=== PATIENT | male | born 1960 | race Caucasian/White ===

== ENCOUNTER 2017-01-16 03:42 | Emergency (ER) | payer OTHER ==
--- NOTE | 2017-01-16 06:03 | ED NURSING NOTES ---
Clinical Report - Nurses [facility] [place] [address] 01/16/2017 3:42 Patient: PRAKASH AVERY TRIAGE Triage time 03:48. Acuity: LEVEL 4. Chief Complaint: Location of symptoms- (right lower leg bleeding). 03:55. Alert. SEPSIS SCREEN: Sepsis Screen. Negative (no infection suspected/documented). LEE COMA SCORE: Lee Coma Scale: 15- eyes open spontaneously (4); best verbal response- oriented x 4 (5); best motor response- obeys commands (6). --03:55 Zachary Plsaencia R.N. 03:48 01/16/17. BP: 176/86. HR: 106. RR: 16. O2 saturation: 97% on room air. Temp: 97.7 F (oral). --03:55 Zachary Plasencia R.N. Weight: 140.6 kg stated. Height/Length: 69 inches Per Patient. BMI: 45.8. --03:54 Zachary Plasencia R.N. Medications Aspir-81 Oral. Lasix Oral 100mg , daily. Lisinopril Oral 20 mg, daily. --03:52 Zachary Plasencia R.N. Medication/allergy information source: the patient. --03:55 Zachary Plasencia R.N. Allergies Penicillin. --03:53 Zachary Plasencia R.N. Toradol. --03:53 Zachary Plasencia R.N. History Arrived by EMS. Historian: patient. Accompanied by family. Primary physician (ME Haylee Crowder). An injury may have occurred. This occurred today. ( Patient reports being at home got up to go to bed and his right lower leg began to bleed). Treatment DISTRIBUTION A CLASS LINEMAN: Applied bandage. EMS treatment DISTRIBUTION A CLASS LINEMAN verbally communicated. PAST MEDICAL HX: Tetanus status: up-to-date. Immunizations: up-to-date. SOCIAL HX: Former smoker, end date 2014. History of occasional drug use: marijuana. No alcohol use. No infectious disease exposure. ABUSE ASSESSMENT: No report of abuse. FALL RISK ASSESSMENT: Fall risk assessment completed. No fall risk identified. NUTRITIONAL RISK ASSESSMENT: The nutritional risk assessment revealed no deficiencies. FUNCTIONAL ASSESSMENT: Functional assessment: no impairments noted. LEARNING NEEDS ASSESSMENT: The learning needs assessment revealed no barriers. SKIN INTEGRITY ASSESSMENT: Skin integrity risk assessment completed. No skin integrity risk identified. --03:55 Zachary Plasencia R.N. PROBLEMS: Hypertension. Congestive Heart Failure. Intraventricular septal defect. --03:54 Zachary Plasencia R.N. ADDITIONAL SURGERIES: Heart surgery. --03:54 Zachary Plasencia R.N. Interventions ID band on patient. To treatment room. --03:55 Zachary Plasencia R.N. PHYSICAL ASSESSMENT 03:56. To room via stretcher. GENERAL / NEURO / PSYCH: Oriented X 4. Alert. EXTREMITIES: Neuro-vascular status intact to the extremity. No lower extremity edema. Right leg: (bleeding). SKIN: Skin intact. Skin is warm and dry. --03:56 Zachary Plasencia R.N. NURSING PROGRESS NOTES 03:52 Pressure dressing applied to right lower leg by [facility] motorcycle technician. --03:57 Zachary Plasencia R.N. 03:56. Two patient identifiers checked. Call light placed in reach. Bed placed in lowest position. Brakes of bed on. Patient ready for evaluation- chart flagged. --03:56 Zachary Plasencia R.N. 04:06 01/16/2017 Site #1 started via IV in the right hand with an 20g angiocath, with aseptic technique and good blood return; one attempt. Blood drawn: rainbow set. Labeled in the presence of the patient and sent to the lab. Saline lock flushed with 10 mL saline. --04:10 Zachary Plasencia R.N. Applied clean bulky and pressure dressing consisting of 4x4 gauze and telfa pad. Secured with tape and kerlix (GEL FOAM APPIED). --04:26 Juan Barriga ER Oracle Erp Developer 04:21 01/16/2017 GELFOAM Topical 1 application. (Applied to right lower leg by [facility] motorcycle technician). --04:27 Zachary Plasencia R.N. 04:49 01/16/2017 Ativan (LORazepam) IVP 1 mg given over 2 minute(s) via site #1. Allergies verified, confirmed 5 rights and sedative warning given to the patient and patient's family. IV patency established. IV site checked: no pain, redness, or swelling. IV flushed thoroughly pre- and post-medication administration. --04:51 Zachary Plasencia R.N. The patient is calm and resting quietly. GENERAL / NEURO / PSYCH: Alert. Oriented X 4. RESPIRATORY: No respiratory distress. SKIN: Skin is warm and dry. --05:28 Zachary Plasencia R.N. 05:27 01/16/17. BP: 135/84. HR: 106. RR: 16. O2 saturation: 94% on room air. --05:28 Zachary Plasencia R.N. 06:11. The patient is calm and resting quietly. GENERAL / NEURO / PSYCH: Alert. Oriented X 4. RESPIRATORY: No respiratory distress. EXTREMITIES: Neuro-vascular status intact to the extremities. SKIN: Skin is warm and dry. --06:16 Zachary Plasencia R.N. DISPOSITION / DISCHARGE Departure time: 06:15. Condition at departure: stable. No learning barriers present. Discharge instructions provided and reviewed with the patient. Patient verbalized understanding. Written instructions provided in [place]. The patient was discharged home and accompanied by spouse. He left the Emergency Department ambulatory and via private vehicle. Spouse driving. FALL RISK ASSESSMENT: Fall risk assessment completed. No fall risk identified. --06:15 Zachary Plasencia R.N. 06:10 01/16/17. BP: 128/66. HR: 99. RR: 15. O2 saturation: 96% on room air. Pain level now: 0/10. --06:15 Zachary Plasencia R.N. correction to prior entry - Patient assisted into and wheeled to parking lot. The patient left the Emergency Department in a wheelchair. --06:17 Zachary Plasencia R.N. Locked/Released at 01/16/2017 6:34 by Zachary Plasencia R.N.
--- NOTE | 2017-01-16 06:03 | ED ORDER SUMMARY ---
..... Patient: PRAKASH AVERY OrderSheet [facility] VisitID: [id number] [address] [place] [address] 56y, M Registration Date/Time: 01/16/2017 ORDER SHEET Weight: 140.6 kg (stated) Allergies: Penicillin, Toradol GENERAL ORDERS: CBC w Diff Urgent (03:52 01/16/2017 Selvin Desai) (Ack 3:53 Esther ER Fire Fighters Dispatcher) (4:10 JQuivey R.N.) CMP Urgent (03:52 01/16/2017 Selvin Desai) (Ack 3:53 Esther ER Fire Fighters Dispatcher) (4:10 JQuivey R.N.) PT with INR Urgent (03:52 01/16/2017 Selvin Desai) (Ack 3:53 Esther ER Fire Fighters Dispatcher) (4:10 JQuivey R.N.) PTT Urgent (03:52 01/16/2017 Selvin Desai) (Ack 3:53 Esther ER Fire Fighters Dispatcher) (4:10 JQuivey R.N.) MEDICATION ORDERS: Gelfoam 1 application (once now to right lower extremity) (03:51 01/16/2017 Selvin Desai) (Ack 3:57 JQuivey R.N.) (4:27 JQuivey R.N.) IV FLUIDS: IV Saline Lock (03:52 01/16/2017 Selvin Desai) (Ack 3:57 JQuivey R.N.) (4:10 JQuivey R.N.) Ativan IV 1 mg (HIGH ALERT MEDICATION, NOW) (04:41 01/16/2017 Selvin Desai) (Ack 4:46 JQuivey R.N.) (4:51 JQuivey R.N.) ORDER SHEET NOTES: [Electronically signed by Zachary Plasencia R.N. (06:34 01/16/2017)] [Electronically signed by Tristin Turner Dr. (11:13 01/20/2017)] [Electronically locked/signed by Zachary Plasencia R.N. (06:34 01/16/2017)]
--- NOTE | 2017-01-16 06:03 | ED ORDER SUMMARY ---
..... Patient: PRAKASH AVERY OrderSheet [facility] VisitID: [id number] [address] [place] [address] 56y, M Registration Date/Time: 01/16/2017 ORDER SHEET Weight: 140.6 kg (stated) Allergies: Penicillin, Toradol GENERAL ORDERS: CBC w Diff Urgent (03:52 01/16/2017 Selvin Desai) (Ack 3:53 Esther ER Welder Fitter Helper) (4:10 JQuivey R.N.) CMP Urgent (03:52 01/16/2017 Selvin Desai) (Ack 3:53 Esther ER Welder Fitter Helper) (4:10 JQuivey R.N.) PT with INR Urgent (03:52 01/16/2017 Selvin Desai) (Ack 3:53 Esther ER Welder Fitter Helper) (4:10 JQuivey R.N.) PTT Urgent (03:52 01/16/2017 Selvin Desai) (Ack 3:53 Esther ER Welder Fitter Helper) (4:10 JQuivey R.N.) MEDICATION ORDERS: Gelfoam 1 application (once now to right lower extremity) (03:51 01/16/2017 Selvin Desai) (Ack 3:57 JQuivey R.N.) (4:27 JQuivey R.N.) IV FLUIDS: IV Saline Lock (03:52 01/16/2017 Selvin Desai) (Ack 3:57 JQuivey R.N.) (4:10 JQuivey R.N.) Ativan IV 1 mg (HIGH ALERT MEDICATION, NOW) (04:41 01/16/2017 Selvin Desai) (Ack 4:46 JQuivey R.N.) (4:51 JQuivey R.N.) ORDER SHEET NOTES: [Electronically signed by Zachary Plasencia R.N. (06:34 01/16/2017)] [Electronically signed by Tristin Turner Dr. (11:13 01/20/2017)] [Electronically locked/signed by Zachary Plasencia R.N. (06:34 01/16/2017)]
--- NOTE | 2017-01-16 06:03 | ED CLINICAL REPORT ---
Clinical Report - Physicians/Mid Levels [facility] [address] [place] [address] 01/16/2017 3:42 Patient: PRAKASH AVERY Arrived- By ambulance. Historian- patient. HISTORY OF PRESENT ILLNESS Chief Complaint: (bleeding from varicose vein). This started today and is still present. It was abrupt in onset and has been constant but is not gone now. It has been located on the right lower extremity. A possible cause has been identified (branch that hit him on the leg a day or two ago). No recent medication, insect bite or food exposure. Was not recently exposed to poison heladio or poison oak. (states he woke up in the bed because it felt wet and slick. reports no blood thinners except aspirin). Similar symptoms previously: None. Recent medical care: Not recently seen/assessed. REVIEW OF SYSTEMS No fever, difficulty breathing, headache or abdominal pain. All systems otherwise negative, except as recorded above. PAST HISTORY See nurses notes. Tetanus immunization status is up-to-date. SOCIAL HISTORY Never smoker. No alcohol use or drug use. Is a local resident. ADDITIONAL NOTES The nursing notes have been reviewed. PHYSICAL EXAM Vital Signs: 01/16/2017 03:48 BP: 176/86. HR: 106. RR: 16. O2 saturation: 97%. Temp: 97.7 F. Blood pressure normal. Oxygen saturation normal. Appearance: Alert. Oriented X3. No acute distress. Eyes: Pupils equal, round and reactive to light. Conjunctivae and eyelids normal. ENT: Ears normal. Nose normal. Pharynx normal. CVS: Normal heart rate and rhythm. Heart sounds normal. Respiratory: No respiratory distress. Breath sounds normal. Chest nontender. Abdomen: Nontender. No organomegaly. Skin: Skin warm and dry. Normal skin color. No rash. Normal skin turgor. (small pinhole-sized defect noted in the right lower extremity where a varicose vein is. There is oozing blood coming from the small defect. Blood is dark in color. It is not pulsatile in nature. Bleeding stops with gentle pressure and with pressure dressings.). Extremities: Normal external inspection. Extremities nontender. LABS, X-RAYS, AND EKG Laboratory Tests: CBC w Diff: (KACI: 01/16/2017 04:06) ( [facility] 01/16/2017 04:20) Final results Test Result Flag Units (Reference) WHITE BLOOD COUNT 9.6 K/uL (4.5-11.5) RED BLOOD COUNT 4.62 M/uL (4.50-5.90) HEMOGLOBIN 13.0 L gm/dL (13.5-17.5) HEMATOCRIT 39.3 L % (41.0-53.0) MEAN CELL VOLUME 85 fL (80-100) MEAN CORPUSCULAR HGB 28 pg (26-34) MEAN CORPUSCULAR HGB CONC 33 g/dL (31-37) RED CELL DISTRIBUTION WIDTH 13.9 % (11.6-14.8) PLATELET COUNT 151 K/uL (150-400) NEUTROPHIL % 67.2 % (50-75) LYMPH % 20.8 L % (25-40) MONO % 8.8 % (3-14) EOSINOPHIL % 2.7 % (0-4) BASOPHIL % 0.5 % (0-2) PT with INR: (KACI: 01/16/2017 04:06) ( [facility] 01/16/2017 04:27) Final results Test Result Flag Units (Reference) INR 1.1 (0.8-1.2) Low Intensity Therapy: INR 1.5-2.0 PT range 18.5-23.1Mod.Intensity Therapy: INR 2.0-3.0 PT range 23.1-31.5High Intensity Therapy: INR 2.5-3.5 PT range 27.4-35.5High Intensity Therapy 2: INR 3.0-4.0 PT range 31.5-39.3 APTT 33 SECONDS (24-34) CMP: (KACI: 01/16/2017 04:06) ( [facility] 01/16/2017 05:35) Final results Test Result Flag Units (Reference) GLUCOSE 157 H mg/dL (70-110) BUN 14 mg/dL (7-18) CREATININE 1.0 mg/dL (0.6-1.3) Estimated GFR >60 mL/min Estimated GFR- >60 mL/min Note: Persistent reduction over 3 months in eGFR<60 mL/min/1.73 m2 defines CKD. Patients with eGFR values>=60 mL/min/1.73 m2 may also have CKD if evidence ofpersistent proteinuria. Additional information may be foundat www.kidney.org. SODIUM 136 mmol/L (136-145) POTASSIUM 3.4 L mmol/L (3.5-5.1) CHLORIDE 98 mmol/L (98-107) CARBON DIOXIDE 28 mmol/L (21-32) CALCIUM 9.2 mg/dL (8.5-10.1) TOTAL PROTEIN 7.8 g/dL (6.4-8.2) ALBUMIN 3.7 g/dL (3.3-5.0) BILIRUBIN, TOTAL 0.8 mg/dL (0.0-1.0) ALKALINE PHOSPHATASE 106 U/L (46-116) AST (SGOT) 21 U/L (15-37) ALT (SGPT) 27 U/L (12-78) . PROGRESS AND PROCEDURES Course of Care: the patient is a 56-year-old male presenting for evaluation of a right lower extremity bleeding. It appears to be from varicose vein. Gelfoam will be applied. We will check laboratory studies for coagulations as well as complete blood cell count. Patient describes a moderate to severe amount of bleeding noted on the bed. Vital signs here in the emergency Department do not indicate acute catastrophic hemorrhagic event. Patient is hypertensive. While here in the emergency department and obtaining treatment, the patient states that he normally takes Ativan for anxiety. Dose of Ativan was provided. Patient reported significant improvement with his symptoms after this medication was given. Patient's workup was unremarkable. Hemoglobin and hematocrit are 13.0 and 39.3 respectively. Bleeding is been controlled here in the emergency department. Patient's wound was dressed in the emergency department. Supplies were provided to the patient's for extra wound care. Discussed with patient with to do in the event of another bleed. Also discussed with patient workup, diagnosis, home care, follow-up, and return precautions. Instructions precautions were also provided. Patient expressed understanding of these instructions and was agreeable to them. I do not feel patient needs to be admitted to the hospital. Patient does not have any acute coagulopathies as the result of the bleed or as a potential exacerbating factor. Vital signs are unremarkable. Patient will be instructed to follow-up with his doctor. Disposition: Discharged. Condition: good. CLINICAL IMPRESSION 01/16/2017 03:48 BP: 176/86. HR: 106. RR: 16. O2 saturation: 97%. Temp: 97.7 F. Blood pressure normal. Oxygen saturation normal. acute lower extremity bleeding from varicose vein. INSTRUCTIONS Warnings: GENERAL WARNINGS: Return or contact your physician immediately if your condition worsens or changes unexpectedly, if not improving as expected, or if other problems arise. Specifically return if pain, vomiting, bleeding, breathing difficulty or fever. Your Current Medications: CONTINUE TAKING THE FOLLOWING MEDICATIONS: Aspir-81 Oral. Lasix Oral : 100mg daily. Lisinopril Oral : 20 mg daily. Follow-up: Return to the emergency department as needed. Follow up with your doctor in three days. Reason for referral: recheck today's concerns. Summary of care provided to patient via paper. Screening today revealed the patient's blood pressure to be in the normal range. The patient should follow up with a primary care provider for blood pressure management. Understanding of the discharge instructions verbalized by patient. (Electronically signed by Tristin Turner Dr. 01/20/2017 11:13)
--- NOTE | 2017-01-16 06:03 | ED NURSING NOTES ---
Clinical Report - Nurses [facility] [place] [address] 01/16/2017 3:42 Patient: PRAKASH AVERY TRIAGE Triage time 03:48. Acuity: LEVEL 4. Chief Complaint: Location of symptoms- (right lower leg bleeding). 03:55. Alert. SEPSIS SCREEN: Sepsis Screen. Negative (no infection suspected/documented). LEE COMA SCORE: Lee Coma Scale: 15- eyes open spontaneously (4); best verbal response- oriented x 4 (5); best motor response- obeys commands (6). --03:55 Zachary Plasencia R.N. 03:48 01/16/17. BP: 176/86. HR: 106. RR: 16. O2 saturation: 97% on room air. Temp: 97.7 F (oral). --03:55 Zachary Plasencia R.N. Weight: 140.6 kg stated. Height/Length: 69 inches Per Patient. BMI: 45.8. --03:54 Zachary Plasencia R.N. Medications Aspir-81 Oral. Lasix Oral 100mg , daily. Lisinopril Oral 20 mg, daily. --03:52 Zachary Plasencia R.N. Medication/allergy information source: the patient. --03:55 Zachary Plasencia R.N. Allergies Penicillin. --03:53 Zachary Plasencia R.N. Toradol. --03:53 Zachary Plasencia R.N. History Arrived by EMS. Historian: patient. Accompanied by family. Primary physician (MD Haylee Crowder). An injury may have occurred. This occurred today. ( Patient reports being at home got up to go to bed and his right lower leg began to bleed). Treatment CONNECTION WORKER: Applied bandage. EMS treatment CONNECTION WORKER verbally communicated. PAST MEDICAL HX: Tetanus status: up-to-date. Immunizations: up-to-date. SOCIAL HX: Former smoker, end date 2014. History of occasional drug use: marijuana. No alcohol use. No infectious disease exposure. ABUSE ASSESSMENT: No report of abuse. FALL RISK ASSESSMENT: Fall risk assessment completed. No fall risk identified. NUTRITIONAL RISK ASSESSMENT: The nutritional risk assessment revealed no deficiencies. FUNCTIONAL ASSESSMENT: Functional assessment: no impairments noted. LEARNING NEEDS ASSESSMENT: The learning needs assessment revealed no barriers. SKIN INTEGRITY ASSESSMENT: Skin integrity risk assessment completed. No skin integrity risk identified. --03:55 Zachary Plasencia R.N. PROBLEMS: Hypertension. Congestive Heart Failure. Intraventricular septal defect. --03:54 Zachary Plasencia R.N. ADDITIONAL SURGERIES: Heart surgery. --03:54 Zachary Plasencia R.N. Interventions ID band on patient. To treatment room. --03:55 Zachary Plasencia R.N. PHYSICAL ASSESSMENT 03:56. To room via stretcher. GENERAL / NEURO / PSYCH: Oriented X 4. Alert. EXTREMITIES: Neuro-vascular status intact to the extremity. No lower extremity edema. Right leg: (bleeding). SKIN: Skin intact. Skin is warm and dry. --03:56 Zachary Plasencia R.N. NURSING PROGRESS NOTES 03:52 Pressure dressing applied to right lower leg by [facility] wind turbine blade repair technician. --03:57 Zachary Plasencia R.N. 03:56. Two patient identifiers checked. Call light placed in reach. Bed placed in lowest position. Brakes of bed on. Patient ready for evaluation- chart flagged. --03:56 Zachary Plasencia R.N. 04:06 01/16/2017 Site #1 started via IV in the right hand with an 20g angiocath, with aseptic technique and good blood return; one attempt. Blood drawn: rainbow set. Labeled in the presence of the patient and sent to the lab. Saline lock flushed with 10 mL saline. --04:10 Zachary Plasencia R.N. Applied clean bulky and pressure dressing consisting of 4x4 gauze and telfa pad. Secured with tape and kerlix (GEL FOAM APPIED). --04:26 Juan Barriga ER Employment Adjudicator 04:21 01/16/2017 GELFOAM Topical 1 application. (Applied to right lower leg by [facility] wind turbine blade repair technician). --04:27 Zachary Plasencia R.N. 04:49 01/16/2017 Ativan (LORazepam) IVP 1 mg given over 2 minute(s) via site #1. Allergies verified, confirmed 5 rights and sedative warning given to the patient and patient's family. IV patency established. IV site checked: no pain, redness, or swelling. IV flushed thoroughly pre- and post-medication administration. --04:51 Zachary Plasencia R.N. The patient is calm and resting quietly. GENERAL / NEURO / PSYCH: Alert. Oriented X 4. RESPIRATORY: No respiratory distress. SKIN: Skin is warm and dry. --05:28 Zachary Plasencia R.N. 05:27 01/16/17. BP: 135/84. HR: 106. RR: 16. O2 saturation: 94% on room air. --05:28 Zachary Plasencia R.N. 06:11. The patient is calm and resting quietly. GENERAL / NEURO / PSYCH: Alert. Oriented X 4. RESPIRATORY: No respiratory distress. EXTREMITIES: Neuro-vascular status intact to the extremities. SKIN: Skin is warm and dry. --06:16 Zachary Plasencia R.N. DISPOSITION / DISCHARGE Departure time: 06:15. Condition at departure: stable. No learning barriers present. Discharge instructions provided and reviewed with the patient. Patient verbalized understanding. Written instructions provided in [place]. The patient was discharged home and accompanied by spouse. He left the Emergency Department ambulatory and via private vehicle. Spouse driving. FALL RISK ASSESSMENT: Fall risk assessment completed. No fall risk identified. --06:15 Zachary Plasencia R.N. 06:10 01/16/17. BP: 128/66. HR: 99. RR: 15. O2 saturation: 96% on room air. Pain level now: 0/10. --06:15 Zachary Plasencia R.N. correction to prior entry - Patient assisted into and wheeled to parking lot. The patient left the Emergency Department in a wheelchair. --06:17 Zachary Plasencia R.N. Locked/Released at 01/16/2017 6:34 by Zachary Plasencia R.N.
--- NOTE | 2017-01-20 11:13 | ED MED RECONCILIATION SUMMARY ---
Patient: PRAKASH AVERY Medication Reconciliation Report [facility] VisitID: [id number] [address] [place] [address] 56y, M Registration Date/Time: 01/16/2017 Weight: 140.6 kg Height/Length: 69 in. BMI: 45.8 ALLERGIES: Penicillin, Toradol The patient's Home Medications are listed below: CONTINUE TAKING THE FOLLOWING MEDICATIONS: Aspir-81 Oral Lasix Oral 100mg , daily Lisinopril Oral 20 mg, daily The source(s) of the original Home Medication information: patient The following Medications were given to the patient in the Emergency Department: GELFOAM Topical 1 application, administered: 01/16/2017 4:21:00 AM Ativan [IVP] IVP 1 mg, administered: 01/16/2017 4:49:00 AM The following Medications were prescribed to the patient: None.
--- NOTE | 2017-01-20 11:13 | ED MAR SUMMARY ---
..... Medication Administration Record [facility] [address] [place] [address] Patient: PRAKASH AVERY Visit ID: [id number] 56y, M Weight: 140.6 kg Height/Length: 69 in BMI: 45.8 ALLERGIES: Toradol, Penicillin Given 04:21 01/16/2017 Zachary Plasencia, R.N. Medication Administered: GELFOAM, Dose: 1 application Topical. Medication Ordered: Gelfoam 1 application (once now to right lower extremity). Given 04:49 01/16/2017 Zachary Plasencia, R.N. Medication Administered: ATIVAN [IVP] (LORAZEPAM), Dose: 1 mg IVP over 2 minute(s), Site: #1 right hand. Medication Ordered: Ativan IV 1 mg (HIGH ALERT MEDICATION, NOW).
--- NOTE | 2017-01-20 11:13 | ED MAR SUMMARY ---
..... Medication Administration Record [facility] [address] [place] [address] Patient: PRAKASH AVERY Visit ID: [id number] 56y, M Weight: 140.6 kg Height/Length: 69 in BMI: 45.8 ALLERGIES: Toradol, Penicillin Given 04:21 01/16/2017 Zachary Plasencia, R.N. Medication Administered: GELFOAM, Dose: 1 application Topical. Medication Ordered: Gelfoam 1 application (once now to right lower extremity). Given 04:49 01/16/2017 Zachary Plasencia, R.N. Medication Administered: ATIVAN [IVP] (LORAZEPAM), Dose: 1 mg IVP over 2 minute(s), Site: #1 right hand. Medication Ordered: Ativan IV 1 mg (HIGH ALERT MEDICATION, NOW).
--- NOTE | 2017-01-20 11:13 | ED DISCHARGE INSTRUCTIONS ---
Patient: PRAKASH AVERY General Instructions [facility] VisitID: [id number] [address] [place] [address] 56y, M Registration Date/Time: 01/16/2017 01/16/2017 03:48 BP: 176/86. HR: 106. RR: 16. O2 saturation: 97%. Temp: 97.7 F. Blood pressure normal. Oxygen saturation normal. acute lower extremity bleeding from varicose vein. INSTRUCTIONS Warnings: GENERAL WARNINGS: Return or contact your physician immediately if your condition worsens or changes unexpectedly, if not improving as expected, or if other problems arise. Specifically return if pain, vomiting, bleeding, breathing difficulty or fever. Your Current Medications: CONTINUE TAKING THE FOLLOWING MEDICATIONS: Aspir-81 Oral. Lasix Oral : 100mg daily. Lisinopril Oral : 20 mg daily. Follow-up: Return to the emergency department as needed. Follow up with your doctor in three days. Reason for referral: recheck today's concerns. Summary of care provided to patient via paper. Screening today revealed the patient's blood pressure to be in the normal range. The patient should follow up with a primary care provider for blood pressure management. Understanding of the discharge instructions verbalized by patient. (Electronically signed by Tristin Turner Dr. 01/20/2017 11:13)
--- NOTE | 2017-01-20 11:13 | ED DISCHARGE INSTRUCTIONS ---
Patient: PRAKASH AVERY General Instructions [facility] VisitID: [id number] [address] [place] [address] 56y, M Registration Date/Time: 01/16/2017 01/16/2017 03:48 BP: 176/86. HR: 106. RR: 16. O2 saturation: 97%. Temp: 97.7 F. Blood pressure normal. Oxygen saturation normal. acute lower extremity bleeding from varicose vein. INSTRUCTIONS Warnings: GENERAL WARNINGS: Return or contact your physician immediately if your condition worsens or changes unexpectedly, if not improving as expected, or if other problems arise. Specifically return if pain, vomiting, bleeding, breathing difficulty or fever. Your Current Medications: CONTINUE TAKING THE FOLLOWING MEDICATIONS: Aspir-81 Oral. Lasix Oral : 100mg daily. Lisinopril Oral : 20 mg daily. Follow-up: Return to the emergency department as needed. Follow up with your doctor in three days. Reason for referral: recheck today's concerns. Summary of care provided to patient via paper. Screening today revealed the patient's blood pressure to be in the normal range. The patient should follow up with a primary care provider for blood pressure management. Understanding of the discharge instructions verbalized by patient. (Electronically signed by Tristin Turner Dr. 01/20/2017 11:13)
--- NOTE | 2017-01-20 11:13 | ED MED RECONCILIATION SUMMARY ---
Patient: PRAKASH AVERY Medication Reconciliation Report [facility] VisitID: [id number] [address] [place] [address] 56y, M Registration Date/Time: 01/16/2017 Weight: 140.6 kg Height/Length: 69 in. BMI: 45.8 ALLERGIES: Penicillin, Toradol The patient's Home Medications are listed below: CONTINUE TAKING THE FOLLOWING MEDICATIONS: Aspir-81 Oral Lasix Oral 100mg , daily Lisinopril Oral 20 mg, daily The source(s) of the original Home Medication information: patient The following Medications were given to the patient in the Emergency Department: GELFOAM Topical 1 application, administered: 01/16/2017 4:21:00 AM Ativan [IVP] IVP 1 mg, administered: 01/16/2017 4:49:00 AM The following Medications were prescribed to the patient: None.
== END 2017-01-16 06:15 | disposition home or self-care (01) ==
LOC: ED SRH 03:42
DX: I86.8 Varicose veins of other specified sites (principal); I11.0 Hypertensive heart disease with heart failure; I50.9 Heart failure, unspecified; Z79.82 Long term (current) use of aspirin; Z88.0 Allergy status to penicillin; Z88.8 Allergy status to other drugs, medicaments and biological substances
CPT/HCPCS: 90100; 94001; 94060; 95059

== ENCOUNTER 2017-04-12 17:16 | Emergency (ER) | payer OTHER ==
--- NOTE | 2017-04-12 19:41 | ED CLINICAL REPORT ---
Clinical Report - Physicians/Mid Levels [facility] [address] [place] [address] 04/12/2017 17:17 Patient: PRAKASH AVERY Time Seen: 17:35. Arrived- By private vehicle. Historian- patient. CPT: ER phys charges level 3 plus (#[id number]). Abscess complicated I&D (#[id number]). HISTORY OF PRESENT ILLNESS Chief Complaint: BOIL. 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 It has been located on the left buttocks. No cause has been identified. Similar symptoms previously: None. Recent medical care: Not recently seen/assessed. REVIEW OF SYSTEMS No fever, chills, sore throat, cough or difficulty breathing. No hoarseness, enlarged lymph nodes, chest pain, abdominal pain or nausea. No diarrhea, difficulty with urination, joint pain or vomiting. All systems otherwise negative, except as recorded above. PAST HISTORY Sick Contact. Heart Disease. Hypertension. Congestive Heart Failure. RBBB. Intraventricular septal defect. ADDITIONAL SURGERIES: Heart surgery. Medications: Aspir-81 Oral. Lasix Oral 100mg , daily. Lisinopril Oral 20 mg, daily. Allergies: Penicillin. Toradol. SOCIAL HISTORY Heavy tobacco smoker (cigarette)- less than 1 pack per day. History of drug use: marijuana. No alcohol use. ADDITIONAL NOTES The nursing notes have been reviewed. PHYSICAL EXAM Vital Signs: 04/12/2017 17:24 BP: 169/65. HR: 98. RR: 18. O2 saturation: 100%. Temp: 98.1 F. Appearance: Alert. Patient in mild distress. ENT: Pharynx normal. CVS: Normal heart rate and rhythm. Heart sounds normal. Respiratory: No respiratory distress. Skin: Single medium abscess with fluctuance and pointing to left buttock. Extremities: Extremities nontender. Neuro: Oriented X 3. PROGRESS AND PROCEDURES Incision & Drainage of Abscess: The abscess is located in the left buttock. The risks of the procedure, benefits and alternatives were explained. Consent was obtained. Anesthesia provided using 2% lidocaine. Skin cleansed with Betadine. The abscess was incised with a #11 surgical blade. A moderate amount of pus was drained. Cavity was irrigated with saline and packed with gauze. Sample obtained for cultures and gram stain. A dressing was applied. Estimated blood loss: 1 mL. Patient/family counseled. Disposition: Discharged. Condition: stable and improved. CLINICAL IMPRESSION Single deep abscess with incision and drainage (Left buttock). INSTRUCTIONS Protect wound and keep wound area clean. Leave dressing in place until seen in follow-up. Warnings: Further evaluation is necessary. Your Current Medications: CONTINUE TAKING THE FOLLOWING MEDICATIONS: Aspir-81 Oral. Lasix Oral : 100mg daily. Lisinopril Oral : 20 mg daily. Prescription Medications: Hydrocodone/APAP 5mg/325mg: take 1 to 2 orally every 6 hours as needed for pain. Dispense fifteen (15). No refills. Bactrim DS 800 mg / 160 mg: Take 1 tablet orally every 12 hours for 7 days. Dispense fourteen (14). No refills. Substitution is permissible. Follow-up: Follow up with your doctor in two days. Reason for referral: for wound check. Understanding of the discharge instructions verbalized by patient. Discharge instructions reviewed with and understanding was verbalized by spouse. (Electronically signed by Roger Newberry MD 04/15/2017 12:29) Addenda for PRAKASH AVERY VisitID: [id number] Date: 04/12/2017 04/12/2017 19:53 Pts phone number verified for culture call backs, if needed. Additional phone number (, Alayna, cell # [phone]) verified as well. (Electronically signed by Kelin Clark R.N. - 04/12/2017 19:53)
--- NOTE | 2017-04-12 19:41 | ED ORDER SUMMARY ---
..... Patient: PRAKASH AVERY OrderSheet [facility] VisitID: [id number] [address] [place] [address] 57y, M Registration Date/Time: 04/12/2017 ORDER SHEET Weight: 132.4 kg (stated) Allergies: Penicillin, Toradol GENERAL ORDERS: I&D Tray (18:16 04/12/2017 Gege JOHNSON) (Ack 18:17 DDean R.N.) (18:37 DDean R.N.) Dress Wounds (19:34 04/12/2017 Gege JOHNSON) (19:36 RCollier R.N.) MEDICATION ORDERS: Bactrim DS PO (Tablet 800-160 mg) 2 tabs (NOW) (19:32 04/12/2017 Gege JOHNSON) (Ack 19:36 RCollier R.N.) (19:41 RCollier R.N.) IV FLUIDS: ORDER SHEET NOTES: [Electronically signed by Kelin Clark R.N. (19:53 04/12/2017)] [Electronically signed by Roger Newberry MD (12:29 04/15/2017)] [Electronically locked/signed by Kelin Clark R.N. (19:53 04/12/2017)]
--- NOTE | 2017-04-12 19:41 | ED CLINICAL REPORT ---
Clinical Report - Physicians/Mid Levels [facility] [address] [place] [address] 04/12/2017 17:17 Patient: PRAKASH AVERY Time Seen: 17:35. Arrived- By private vehicle. Historian- patient. CPT: ER phys charges level 3 plus (#[id number]). Abscess complicated I&D (#[id number]). HISTORY OF PRESENT ILLNESS Chief Complaint: BOIL. 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 It has been located on the left buttocks. No cause has been identified. Similar symptoms previously: None. Recent medical care: Not recently seen/assessed. REVIEW OF SYSTEMS No fever, chills, sore throat, cough or difficulty breathing. No hoarseness, enlarged lymph nodes, chest pain, abdominal pain or nausea. No diarrhea, difficulty with urination, joint pain or vomiting. All systems otherwise negative, except as recorded above. PAST HISTORY Sick Contact. Heart Disease. Hypertension. Congestive Heart Failure. RBBB. Intraventricular septal defect. ADDITIONAL SURGERIES: Heart surgery. Medications: Aspir-81 Oral. Lasix Oral 100mg , daily. Lisinopril Oral 20 mg, daily. Allergies: Penicillin. Toradol. SOCIAL HISTORY Heavy tobacco smoker (cigarette)- less than 1 pack per day. History of drug use: marijuana. No alcohol use. ADDITIONAL NOTES The nursing notes have been reviewed. PHYSICAL EXAM Vital Signs: 04/12/2017 17:24 BP: 169/65. HR: 98. RR: 18. O2 saturation: 100%. Temp: 98.1 F. Appearance: Alert. Patient in mild distress. ENT: Pharynx normal. CVS: Normal heart rate and rhythm. Heart sounds normal. Respiratory: No respiratory distress. Skin: Single medium abscess with fluctuance and pointing to left buttock. Extremities: Extremities nontender. Neuro: Oriented X 3. PROGRESS AND PROCEDURES Incision & Drainage of Abscess: The abscess is located in the left buttock. The risks of the procedure, benefits and alternatives were explained. Consent was obtained. Anesthesia provided using 2% lidocaine. Skin cleansed with Betadine. The abscess was incised with a #11 surgical blade. A moderate amount of pus was drained. Cavity was irrigated with saline and packed with gauze. Sample obtained for cultures and gram stain. A dressing was applied. Estimated blood loss: 1 mL. Patient/family counseled. Disposition: Discharged. Condition: stable and improved. CLINICAL IMPRESSION Single deep abscess with incision and drainage (Left buttock). INSTRUCTIONS Protect wound and keep wound area clean. Leave dressing in place until seen in follow-up. Warnings: Further evaluation is necessary. Your Current Medications: CONTINUE TAKING THE FOLLOWING MEDICATIONS: Aspir-81 Oral. Lasix Oral : 100mg daily. Lisinopril Oral : 20 mg daily. Prescription Medications: Hydrocodone/APAP 5mg/325mg: take 1 to 2 orally every 6 hours as needed for pain. Dispense fifteen (15). No refills. Bactrim DS 800 mg / 160 mg: Take 1 tablet orally every 12 hours for 7 days. Dispense fourteen (14). No refills. Substitution is permissible. Follow-up: Follow up with your doctor in two days. Reason for referral: for wound check. Understanding of the discharge instructions verbalized by patient. Discharge instructions reviewed with and understanding was verbalized by spouse. (Electronically signed by Roger Newberry MD 04/15/2017 12:29) Addenda for PRAKASH AVERY VisitID: [id number] Date: 04/12/2017 04/12/2017 19:53 Pts phone number verified for culture call backs, if needed. Additional phone number (, Alayna, cell # [phone]) verified as well. (Electronically signed by Kelin Clark R.N. - 04/12/2017 19:53)
--- NOTE | 2017-04-12 19:41 | ED ORDER SUMMARY ---
..... Patient: PRAKASH AVERY OrderSheet [facility] VisitID: [id number] [address] [place] [address] 57y, M Registration Date/Time: 04/12/2017 ORDER SHEET Weight: 132.4 kg (stated) Allergies: Penicillin, Toradol GENERAL ORDERS: I&D Tray (18:16 04/12/2017 Gege JOHNSON) (Ack 18:17 DDean R.N.) (18:37 DDean R.N.) Dress Wounds (19:34 04/12/2017 Gege JOHNSON) (19:36 RCollier R.N.) MEDICATION ORDERS: Bactrim DS PO (Tablet 800-160 mg) 2 tabs (NOW) (19:32 04/12/2017 Gege JOHNSON) (Ack 19:36 RCollier R.N.) (19:41 RCollier R.N.) IV FLUIDS: ORDER SHEET NOTES: [Electronically signed by Kelin Clark R.N. (19:53 04/12/2017)] [Electronically signed by Roger Newberry MD (12:29 04/15/2017)] [Electronically locked/signed by Kelin Clark R.N. (19:53 04/12/2017)]
--- NOTE | 2017-04-12 19:41 | ED NURSING NOTES ---
Clinical Report - Nurses [facility] [address] [place] [address] 04/12/2017 17:17 Patient: PRAKASH AVERY TRIAGE Triage time 17:Apr 12 2017. Acuity: LEVEL 4. Chief Complaint: BOIL. SOURAV COMA SCORE: [place] Coma Scale: 15- eyes open spontaneously (4); best verbal response- oriented x 4 (5); best motor response- obeys commands (6). --17:29 Kenn Mahajan R.N. 17:24 04/12/17. BP: 169/65. HR: 98. RR: 18. O2 saturation: 100%. Temp: 98.1 F. Pain level now 10/10. --17:29 Kenn Mahajan R.N. Weight: 132.4 kg stated. Height/Length: 69 inches Per Patient. BMI: 43.1. --17:28 Kenn Mahajan R.N. Medications Aspir-81 Oral. Lasix Oral 100mg , daily. Lisinopril Oral 20 mg, daily. --17:26 Kenn Mahajan R.N. Allergies Penicillin. Toradol. --17:26 Kenn Mahajan R.N. History Arrived by private vehicle. Historian: patient. Accompanied by family. Reported as located on the left buttock. Onset. (Since wednesday). It is described as painful. No recent medication, food exposure or insect bite. ( Was in [place] returned wednesday and was having pain and a boil on buttocks.). He has had fever. No muscle aches, headache, cough, difficulty breathing or itching. No weakness. Not itchy or burning. Treatment RN NEW GRAD: (tea tree oil, hot soaks, manas). PAST MEDICAL HX: Heart disease. No history of asthma, diabetes mellitus or lung disease. Immunizations: up-to-date. SOCIAL HX: Former smoker, end date 2014. History of drug use: marijuana. No alcohol use. SELF HARM ASSESSMENT: A self harm assessment was performed. The patient answered "no" to the question "Have you recently felt down, depressed, or hopeless?" and "Do you have thoughts of harming or killing yourself?". FALL RISK ASSESSMENT: Fall risk assessment completed. No fall risk identified. NUTRITIONAL RISK ASSESSMENT: The nutritional risk assessment revealed no deficiencies. FUNCTIONAL ASSESSMENT: Functional assessment: no impairments noted. ABUSE ASSESSMENT: Abuse assessment: (yes) The patient was asked "Do you feel safe in your home?". --17: Kenn Mahajan R.N. PROBLEMS: Sick Contact. Heart Disease. Hypertension. Congestive Heart Failure. RBBB. Intraventricular septal defect. --17: Kenn Mahajan R.N. ADDITIONAL SURGERIES: Heart surgery. --: Kenn Mahajan R.N. Interventions ID band on patient. --: Kenn Mahajan R.N. PHYSICAL ASSESSMENT Ambulatory to room. GENERAL / NEURO / PSYCH: Alert. The patient does not appear to be in acute distress. Appears anxious. Oriented X 4. HEENT: Pupils equal, round and reactive to light. Mucous membranes are pink. RESPIRATORY: Respirations not labored. Breath sounds within normal limits. CVS: Capillary refill less than 2 seconds. Pulses within normal limits. GI / : Abdomen nontender. SKIN: Skin is warm, dry and non-tender. Skin lesion present. Normal skin turgor. Skin tenderness present. Increased warmth present. Erythema present. No skin rash. --17:31 Kenn Mahajan R.N. NURSING PROGRESS NOTES The initial plan of care for this patient includes an assessment with efforts to address patient positioning, appropriate ambient lighting and comfortable environmental temperature; impairment of the integumentary system. Pulse oximeter and NIBP monitor placed on patient. Reassurance given. Call light placed in reach. Side rails up x 1. Bed placed in lowest position. Brakes of bed on. --17:31 Kenn Mahajan R.N. 18:37 04/12/17. ( I&D set up at bedside). --18:37 Katalina Helton R.N. Care transferred and report received. --19:07 Kelin Clark R.N. 19:10 04/12/17. BP: 138/66. HR: 88. RR: 15. O2 saturation: 98% on room air. --19:11 Kelin Clark R.N. The patient is calm and resting quietly. ( LAC cart outside of room, pt ready for I&D, EDMD aware.). --19:13 Kelin Clark R.N. I & D: Incision and Drainage of abscess performed by ED physician. The abscess is located on the left buttock. Preparation: with lidocaine. Procedure; pus was drained. Cavity was irrigated with saline. A dressing was applied. Post-procedure: he was stable, no complications and bleeding controlled. --19:36 Kelin Clark R.N. Applied bulky dressing consisting of 4x4 gauze. Secured with tape. --19:37 Kelin Clark R.N. 19:40 04/12/2017 Bactrim DS (Sulfamethoxazole-TMP DS) PO Tablets 2 tab given. Allergies verified and confirmed 5 rights. --19:41 Kelin Clark R.N. I & D: Procedure. Sample obtained for cultures. ( cultures collected by [facility], labeled and sent to lab by RN. Name and date of verified by pt.). --19:43 Kelin Clark R.N. DISPOSITION / DISCHARGE Condition at departure: improved and stable. No learning barriers present. Discharge instructions provided and reviewed with the patient and spouse. Reviewed medication(s) side effects, precautions, dosing and course information. Prescription(s) given to the patient. Patient and spouse verbalized understanding. Written instructions provided in Kyrgyz. The patient was discharged home and accompanied by spouse. He left the Emergency Department ambulatory and via private vehicle. --19:51 Kelin Clark R.N. 19:49 04/12/17. BP: 137/91. HR: 90. RR: 15. O2 saturation: 97% on room air. Temp: deferred. Fitzgerald-Padilla pain scale: 210. --19:51 Kelin Clark R.N. Locked/Released at 04/12/2017 19:53 by Kelin Clark R.N.
--- NOTE | 2017-04-12 19:41 | ED NURSING NOTES ---
Clinical Report - Nurses [facility] [address] [place] [address] 04/12/2017 17:17 Patient: PRAKASH AVERY TRIAGE Triage time 17:Apr 12 2017. Acuity: LEVEL 4. Chief Complaint: BOIL. SOURAV COMA SCORE: [place] Coma Scale: 15- eyes open spontaneously (4); best verbal response- oriented x 4 (5); best motor response- obeys commands (6). --17:29 Kenn Mahajan R.N. 17:24 04/12/17. BP: 169/65. HR: 98. RR: 18. O2 saturation: 100%. Temp: 98.1 F. Pain level now 10/10. --17:29 Kenn Mahajan R.N. Weight: 132.4 kg stated. Height/Length: 69 inches Per Patient. BMI: 43.1. --17:28 Kenn Mahajan R.N. Medications Aspir-81 Oral. Lasix Oral 100mg , daily. Lisinopril Oral 20 mg, daily. --17:26 Kenn Mahajan R.N. Allergies Penicillin. Toradol. --17:26 Kenn Mahajan R.N. History Arrived by private vehicle. Historian: patient. Accompanied by family. Reported as located on the left buttock. Onset. (Since wednesday). It is described as painful. No recent medication, food exposure or insect bite. ( Was in [place] returned wednesday and was having pain and a boil on buttocks.). He has had fever. No muscle aches, headache, cough, difficulty breathing or itching. No weakness. Not itchy or burning. Treatment ERP CONSULTANT: (tea tree oil, hot soaks, manas). PAST MEDICAL HX: Heart disease. No history of asthma, diabetes mellitus or lung disease. Immunizations: up-to-date. SOCIAL HX: Former smoker, end date 2014. History of drug use: marijuana. No alcohol use. SELF HARM ASSESSMENT: A self harm assessment was performed. The patient answered "no" to the question "Have you recently felt down, depressed, or hopeless?" and "Do you have thoughts of harming or killing yourself?". FALL RISK ASSESSMENT: Fall risk assessment completed. No fall risk identified. NUTRITIONAL RISK ASSESSMENT: The nutritional risk assessment revealed no deficiencies. FUNCTIONAL ASSESSMENT: Functional assessment: no impairments noted. ABUSE ASSESSMENT: Abuse assessment: (yes) The patient was asked "Do you feel safe in your home?". --17: Kenn Mahajan R.N. PROBLEMS: Sick Contact. Heart Disease. Hypertension. Congestive Heart Failure. RBBB. Intraventricular septal defect. --17: Kenn Mahajan R.N. ADDITIONAL SURGERIES: Heart surgery. --: Kenn Mahajan R.N. Interventions ID band on patient. --: Kenn Mahajan R.N. PHYSICAL ASSESSMENT Ambulatory to room. GENERAL / NEURO / PSYCH: Alert. The patient does not appear to be in acute distress. Appears anxious. Oriented X 4. HEENT: Pupils equal, round and reactive to light. Mucous membranes are pink. RESPIRATORY: Respirations not labored. Breath sounds within normal limits. CVS: Capillary refill less than 2 seconds. Pulses within normal limits. GI / : Abdomen nontender. SKIN: Skin is warm, dry and non-tender. Skin lesion present. Normal skin turgor. Skin tenderness present. Increased warmth present. Erythema present. No skin rash. --17:31 Kenn Mahajan R.N. NURSING PROGRESS NOTES The initial plan of care for this patient includes an assessment with efforts to address patient positioning, appropriate ambient lighting and comfortable environmental temperature; impairment of the integumentary system. Pulse oximeter and NIBP monitor placed on patient. Reassurance given. Call light placed in reach. Side rails up x 1. Bed placed in lowest position. Brakes of bed on. --17:31 Kenn Mahajan R.N. 18:37 04/12/17. ( I&D set up at bedside). --18:37 Katalina Helton R.N. Care transferred and report received. --19:07 Kelin Clark R.N. 19:10 04/12/17. BP: 138/66. HR: 88. RR: 15. O2 saturation: 98% on room air. --19:11 Kelin Clark R.N. The patient is calm and resting quietly. ( LAC cart outside of room, pt ready for I&D, EDMD aware.). --19:13 Kelin Clark R.N. I & D: Incision and Drainage of abscess performed by ED physician. The abscess is located on the left buttock. Preparation: with lidocaine. Procedure; pus was drained. Cavity was irrigated with saline. A dressing was applied. Post-procedure: he was stable, no complications and bleeding controlled. --19:36 Kelin Clark R.N. Applied bulky dressing consisting of 4x4 gauze. Secured with tape. --19:37 Kelin Clark R.N. 19:40 04/12/2017 Bactrim DS (Sulfamethoxazole-TMP DS) PO Tablets 2 tab given. Allergies verified and confirmed 5 rights. --19:41 Kelin Clark R.N. I & D: Procedure. Sample obtained for cultures. ( cultures collected by [facility], labeled and sent to lab by RN. Name and date of verified by pt.). --19:43 Kelin Clark R.N. DISPOSITION / DISCHARGE Condition at departure: improved and stable. No learning barriers present. Discharge instructions provided and reviewed with the patient and spouse. Reviewed medication(s) side effects, precautions, dosing and course information. Prescription(s) given to the patient. Patient and spouse verbalized understanding. Written instructions provided in [place]. The patient was discharged home and accompanied by spouse. He left the Emergency Department ambulatory and via private vehicle. --19:51 Kelin Clark R.N. 19:49 04/12/17. BP: 137/91. HR: 90. RR: 15. O2 saturation: 97% on room air. Temp: deferred. Fitzgerald-Padilla pain scale: 210. --19:51 Kelin Clark R.N. Locked/Released at 04/12/2017 19:53 by Kelin Clark R.N.
--- NOTE | 2017-04-15 12:29 | ED DISCHARGE INSTRUCTIONS ---
Patient: PRAKASH AVERY General Instructions [facility] VisitID: [id number] [address] [place] [address] 57y, M Registration Date/Time: 04/12/2017 Single deep abscess with incision and drainage (Left buttock). INSTRUCTIONS Protect wound and keep wound area clean. Leave dressing in place until seen in follow-up. Warnings: Further evaluation is necessary. Your Current Medications: CONTINUE TAKING THE FOLLOWING MEDICATIONS: Aspir-81 Oral. Lasix Oral : 100mg daily. Lisinopril Oral : 20 mg daily. Prescription Medications: Hydrocodone/APAP 5mg/325mg: take 1 to 2 orally every 6 hours as needed for pain. Dispense fifteen (15). No refills. Bactrim DS 800 mg / 160 mg: Take 1 tablet orally every 12 hours for 7 days. Dispense fourteen (14). No refills. Substitution is permissible. Follow-up: Follow up with your doctor in two days. Reason for referral: for wound check. Understanding of the discharge instructions verbalized by patient. Discharge instructions reviewed with and understanding was verbalized by spouse. ADDITIONAL INFORMATION Abscess [Incision & Drainage] An abscess (sometimes called a boil) occurs when bacteria get trapped under the skin and begin to grow. Pus forms inside the abscess as the body responds to the bacteria. An abscess can occur with an insect bite, ingrown hair, blocked oil gland, pimple, cyst, or puncture wound. Treatment of your abscess has required an incision to drain the pus. If the abscess pocket was large, a gauze packing may have been inserted. This will need to be removed and possibly replaced on your next visit. Antibiotics are not required in the treatment of a simple abscess, unless the infection is spreading into the skin around the wound (known as cellulitis). Healing of the wound will take about one to two weeks depending on the size of the abscess. Healthy tissue will grow from the bottom and sides of the opening until it seals over. Home Care: The wound may drain for the first two days. Cover the wound with a clean dry dressing. If the dressing becomes soaked with blood or pus, change it. If a gauze packing was placed inside the abscess cavity, you may be advised to remove it yourself. You may do this in the shower. Once the packing is removed, you should wash the area in the shower or bath 3 to 4 times a day, until the skin opening has closed. If you were prescribed antibiotics, take them as directed until they are all gone. You may use acetaminophen (Tylenol) or ibuprofen (Motrin, Advil) to control pain, unless another pain medicine was prescribed. [ NOTE: If you have liver disease or ever had a stomach ulcer, talk with your doctor before using these medicines.] Follow Up with your doctor as advised by our staff. If a gauze packing was inserted in your wound, it should be removed in 1-2 days. Check your wound every day for the signs of worsening infection listed below. Get Prompt Medical Attention if any of the following occur: Increasing redness or swelling Red streaks in the skin leading away from the wound Increasing local pain or swelling Continued pus draining from the wound two days after treatment Fever of 100.4F (38C) or higher, or as directed by your healthcare provider You have been given the following additional information: Abscess, Incision And Drainage (Electronically signed by Roger Newberry MD 04/15/2017 12:29)
--- NOTE | 2017-04-15 12:29 | ED MED RECONCILIATION SUMMARY ---
Patient: PRAKASH AVERY Medication Reconciliation Report [facility] VisitID: [id number] [address] [place] [address] 57y, M Registration Date/Time: 04/12/2017 Weight: 132.4 kg Height/Length: 69 in. BMI: 43.1 ALLERGIES: Penicillin, Toradol The patient's Home Medications are listed below: CONTINUE TAKING THE FOLLOWING MEDICATIONS: Aspir-81 Oral Lasix Oral 100mg , daily Lisinopril Oral 20 mg, daily The source(s) of the original Home Medication information: Not obtained. The following Medications were given to the patient in the Emergency Department: Bactrim DS [PO] PO 2 tab, administered: 04/12/2017 7:40:00 PM The following Medications were prescribed to the patient: Hydrocodone/APAP 5mg/325mg: take 1 to 2 orally every 6 hours as needed for pain. Dispense fifteen (15). No refills. -- Roger Newberry MD Bactrim DS 800 mg / 160 mg: Take 1 tablet orally every 12 hours for 7 days. Dispense fourteen (14). No refills. Substitution is permissible. -- Roger Newberry MD
--- NOTE | 2017-04-15 12:29 | ED MED RECONCILIATION SUMMARY ---
Patient: PRAKASH AVERY Medication Reconciliation Report [facility] VisitID: [id number] [address] [place] [address] 57y, M Registration Date/Time: 04/12/2017 Weight: 132.4 kg Height/Length: 69 in. BMI: 43.1 ALLERGIES: Penicillin, Toradol The patient's Home Medications are listed below: CONTINUE TAKING THE FOLLOWING MEDICATIONS: Aspir-81 Oral Lasix Oral 100mg , daily Lisinopril Oral 20 mg, daily The source(s) of the original Home Medication information: Not obtained. The following Medications were given to the patient in the Emergency Department: Bactrim DS [PO] PO 2 tab, administered: 04/12/2017 7:40:00 PM The following Medications were prescribed to the patient: Hydrocodone/APAP 5mg/325mg: take 1 to 2 orally every 6 hours as needed for pain. Dispense fifteen (15). No refills. -- Roger Newberry MD Bactrim DS 800 mg / 160 mg: Take 1 tablet orally every 12 hours for 7 days. Dispense fourteen (14). No refills. Substitution is permissible. -- Roger Newberry MD
--- NOTE | 2017-04-15 12:29 | ED MAR SUMMARY ---
..... Medication Administration Record [facility] [address] [place] [address] Patient: PRAKASH AVERY Visit ID: [id number] 57y, M Weight: 132.4 kg Height/Length: 69 in BMI: 43.1 ALLERGIES: Penicillin, Toradol Given 19:40 04/12/2017 Kelin Clark R.N. Medication Administered: BACTRIM DS [PO] (SULFAMETHOXAZOLE-TMP DS), Dose: 2 tab Tablets PO. Medication Ordered: Bactrim DS PO (Tablet 800-160 mg) 2 tabs (NOW).
--- NOTE | 2017-04-15 12:29 | ED MAR SUMMARY ---
..... Medication Administration Record [facility] [address] [place] [address] Patient: PRAKASH AVERY Visit ID: [id number] 57y, M Weight: 132.4 kg Height/Length: 69 in BMI: 43.1 ALLERGIES: Penicillin, Toradol Given 19:40 04/12/2017 Kelin Clark R.N. Medication Administered: BACTRIM DS [PO] (SULFAMETHOXAZOLE-TMP DS), Dose: 2 tab Tablets PO. Medication Ordered: Bactrim DS PO (Tablet 800-160 mg) 2 tabs (NOW).
== END 2017-04-12 19:49 | disposition home or self-care (01) ==
LOC: ED SRH 17:16
DX: L02.31 Cutaneous abscess of buttock (principal); I10 Essential (primary) hypertension; F17.210 Nicotine dependence, cigarettes, uncomplicated; Z79.899 Other long term (current) drug therapy; Z88.0 Allergy status to penicillin; F12.10 Cannabis abuse, uncomplicated